=== PATIENT | female | born 1945 | race African-American/Black ===

== ENCOUNTER → 2018-02-14 | Outpatient (CLI) | payer MEDICARE, BC ==
[2014-11-29 15:09] VITALS: BP 115/63
[~2018-02-14] MED LIST: ACET500T68 PO; ACYC800T PO; ASCO10002 PO; ASPI-630 PO; CHOL400C PO; EZET10TA18 PO; FERR325T72 PO; FEXO180T81 PO; FLUT1DIS5 IH; FLUT9.9S NS; GARL1CAP3 PO; LACT1CAP6 PO; LOSA1TAB22 PO; MULT-18 PO; NAPR220T70 PO; NIAC1000 PO; OMEG1CAP6 PO; Oxycodone Hcl/Acetaminophen PO; POTA20TA82 PO; RALO60TA PO; SOY50CAP PO; TRAM50TA PO; VENL75TA PO; WARF-31 PO; [UNRECOGNIZED DRUG - CODE] PO
--- NOTE | 2018-02-14 13:59 | RAD ---
MR of the right knee - Irving and Nephew protocol History: Chronic pain.. Technique: Images are obtained in accordance with the standard Irving and Nephew protocol. 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 Small joint effusion. Primary osteoarthritis at all joint compartments. Apparent medial and lateral meniscal tear. Anterior cruciate ligament is not visualized. Tiny fluid collection or cyst at the proximal tibiofibular joint. Electronically signed by: Emery Boyd MD (02/14/2018 1:55 PM) [id number]
--- NOTE | 2018-02-14 18:22 | RAD ---
Bone length study dated 02/14/2018. No comparison available. Clinical data indication: Preop for knee replacement. FINDINGS: Bone length from the central femoral head to the tibial plafond and is estimated at 100.7 cm based on plain films. There is moderate degenerative change at the right knee joint with asymmetric medial joint space narrowing. No periostitis or bone destruction. Mild degenerative change at the right hip joint and right ankle joint. IMPRESSION: Limited exam, intended for surgical localization purposes only. Electronically signed by: Emery Álvarez MD (02/14/2018 6:19 PM) [facility]
== END | disposition home or self-care (01) ==
LOC: RAD 08:56
PROVIDERS: ATTEND Orthopaedic Surgery Sports Medicine
DX: S83.281A Other tear of lateral meniscus, current injury, right knee, initial encounter (principal); M17.11 Unilateral primary osteoarthritis, right knee; M25.461 Effusion, right knee; G89.29 Other chronic pain; X58.XXXA Exposure to other specified factors, initial encounter; Y93.89 Activity, other specified; Y92.89 Other specified places as the place of occurrence of the external cause; Y99.8 Other external cause status
CPT/HCPCS: 73721; 77073

== ENCOUNTER → 2018-03-21 | Outpatient (CLI) | payer MEDICARE, BC ==
[2014-11-29 15:09] VITALS: BP 115/63
[~2018-03-21] MED LIST changes: +ALBU2.5V8 INH; +ASPI81TA50 PO; +FA/V1CAP2 PO; +LATA2.5D3 EACHEYE; +NAPR220C4 PO; +OMEP40CA5 PO
[2018-03-21 12:22] LABS: BASO # 0.1 x10^3/uL (0.0-0.2); BASO % 1 % (0-3); EOS # 0.2 x10^3/uL (0.0-0.7); EOS % 2 % (0-3); LYMPH # 2.3 x10^3/uL (1.0-4.8); LYMPH % 23 % (24-48); MEAN CORPUSCULAR HEMOGLOBIN 30 pg (25-35); MEAN CORPUSCULAR HGB CONC 33 g/dL (31-37); MEAN CORPUSCULAR VOLUME 91 fL (79-100); MONO # 1.3 x10^3/uL (0.0-1.1); MONO % 13 % (0-9); NEUT # 5.8 x10^3uL (1.8-7.7); NEUT % 60 % (31-73); PLATELET COUNT 186 x10^3/uL (140-400); RED BLOOD COUNT 4.29 x10^6/uL (3.50-5.40); RED CELL DISTRIBUTION WIDTH 13.2 % (11.5-14.5); WHITE BLOOD COUNT 9.6 x10^3/uL (4.0-11.0)
--- NOTE | 2018-03-21 12:28 | EKG ---
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
[2018-03-21 12:35] LABS: PROTHROMBIN TIME PATIENT 15.2 SEC (11.7-14.0)
[2018-03-21 12:36] LABS: BILIRUBIN,URINE NEGATIVE (NEG); CLARITY,URINE CLEAR; COLOR,URINE YELLOW; NITRITE,URINE NEGATIVE (NEG); PH,URINE 6.5; PROTEIN,URINE NEGATIVE (NEG-TRACE); UROBILINOGEN,URINE 0.2 mg/dL (0.2 mg/dL)
[2018-03-21 12:36] LABS: ALBUMIN 3.8 g/dL (3.4-5.0); CALCIUM 9.5 mg/dL (8.5-10.1); CREATININE 0.8 mg/dL (0.6-1.0); GFR 85.6; POTASSIUM 4.5 mmol/L (3.5-5.1)
[2018-03-21 12:46] LABS: SQUAMOUS EPITHELIAL CELL,UR MOD /LPF
[2018-03-21 12:47] LABS: RBC,URINE OCC /HPF (0-2); WBC,URINE 0 /HPF (0-4)
[2018-03-21 12:48] LABS: BACTERIA,URINE 0 /HPF (0-FEW)
--- NOTE | 2018-03-21 16:31 | RAD ---
Chest PA and lateral 03/21/2018. Reason for exam: Preop for knee surgery. Comparison is made with a study done 11/12/2014. The left hemidiaphragm remains elevated and depth of inspiration is shallow. No new infiltrate or effusion is seen. The heart does not appear enlarged. There is suggestion of some fullness of the right upper mediastinum compared to the prior study. Patient is not obviously rotated. IMPRESSION: Altered contour of right upper mediastinum. Adenopathy is a consideration. CT of the chest would be useful for further evaluation. Electronically signed by: Tl Bryant Jr., MD (03/21/2018 4:27 PM) [id number]
== END | disposition home or self-care (01) ==
LOC: SURGPAT 11:08
PROVIDERS: ATTEND Orthopaedic Surgery Sports Medicine
DX: Z01.818 Encounter for other preprocedural examination (principal); M17.11 Unilateral primary osteoarthritis, right knee
CPT/HCPCS: 36415; 71046; 80048; 81001; 82040; 85025; 85610; 85651; 85730; 87641; 93005